=== PATIENT | female | born 1945 | race Caucasian/White ===

== ENCOUNTER 2017-10-30 10:06 | Emergency (ER) | payer OTHER ==
[2017-10-30 11:20] LABS: ADD UMIC NO; UR ASCORBIC ACID NEGATIVE (NEGATIVE); UR BILIRUBIN (Dip) NEGATIVE (NEGATIVE); UR BLOOD (Dip) NEGATIVE (NEGATIVE); UR CLARITY CLEAR (CLEAR); UR COLOR STRAW (YELLOW); UR GLUCOSE (Dip) NEGATIVE (NEGATIVE); UR KETONES (Dip) NEGATIVE (NEGATIVE); UR LEUKOCYTE ESTERASE (Dip) NEGATIVE Leu/ul (NEGATIVE); UR NITRITE (Dip) NEGATIVE (NEGATIVE); UR SPECIFIC GRAVITY (Dip) 1.008 (1.003-1.030); UR TOTAL PROTEIN (Dip) NEGATIVE (NEGATIVE); UR UROBILINOGEN (Dip) NEGATIVE (NEGATIVE)
[2017-10-30] MEDS: ACETAMINOPHEN 325 MG TAB PO (11:22)
== END 2017-10-30 13:39 | disposition home or self-care (01) ==
LOC: FTE 10:06
DX: R51 Headache (principal); R07.9 Chest pain, unspecified
CPT/HCPCS: 70450; 81003; 93005; 99285-25